=== PATIENT | female | born 2000 | race Hispanic/Latino ===

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

== ENCOUNTER 2022-04-22 09:36 | Emergency (ER) | payer OTHER ==
[2022-04-22 10:55] LABS: #Lymphocytes 0.8 thou/uL (1.20-3.40); #Monocytes 0.8 thou/uL (0.11-0.59); #Neutrophils 4.9 thou/uL (1.40-6.50); %Basophils 0.3 % (0.0-1.0); %Eosinophils 0.2 % (0.0-10.0); %Lymphocytes 12.7 % (28.0-48.0); %Monocytes 12.5 % (0.0-4.0); %Neutrophils 74.2 % (31.0-61.0); Hemoglobin 12.7 g/dL (12.0-16.0); Mean Corpuscular HGB CONC 31.1 g/dL (32.0-36.0); Mean Corpuscular Hemoglobin 27.2 pg (25.0-35.0); Mean Corpuscular Volume 87.6 fl (78.0-98.0); Mean Platelet Volume 8.8 fL (7.4-10.4); Platelet Count 248 10x3/uL (130-400); Red Blood Cell (RBC) Count 4.65 mill/uL (4.00-5.20); White Blood Cell (WBC) Count 6.6 10x3/uL (4.8-10.8)
[2022-04-22 11:07] LABS: BHCG - Serum Negative (NEGATIVE); Pregs Control Background? CLEAR/WHITE (CLR/WHITE); Pregs Control Bar Appear? YES (CONTROL BAR)
[2022-04-22 11:19] LABS: ALT (SGPT) 14 U/L (8-55); AST (SGOT) 19 U/L (5-30); Albumin 4.3 g/dL (3.5-5.0); Alkaline Phosphatase 91 U/L (40-100); Anion Gap 15 mmol/L (10-20); BUN (Urea Nitrogen) 10 mg/dL (8.4-21.0); Bilirubin, Total 0.3 mg/dL (0.2-1.2); Calc. Creatinine Clearance 0 mL/min (70-130); Calcium 8.9 mg/dL (7.8-10.44); Carbon Dioxide 20 mmol/L (22-29); Chloride 104 mmol/L (98-107); Estimated GFR 123; Glucose 87 mg/dL (70-105); Potassium 3.7 mmol/L (3.5-5.1); Protein, Total 7.3 g/dL (6.0-8.3); Sodium 135 mmol/L (136-145)
== END 2022-04-22 12:12 | disposition home or self-care (01) ==
LOC: ERS 09:36
DX: J10.83 Influenza due to other identified influenza virus with otitis media (principal); R55 Syncope and collapse
CPT/HCPCS: 36415; 80053; 83605; 84703; 85025; 87804; 93005

== ENCOUNTER 2024-06-03 14:16 | Emergency (ER) | payer SELFPAY ==
[2024-06-03] MEDS ORDERED: Ondansetron ODT 4 MG TAB ONE (14:19)
[2024-06-03] MEDS ORDERED: Ondansetron PF 4 MG/2 ML Vial ONE (14:44)
[2024-06-03 15:11] LABS: Bilirubin Negative (Negative); Blood, Urine Negative (Negative); Glucose, Urine (Dipstick) Negative (Negative); Ketone, Urine Negative (Negative); Leukocyte Negative (Negative); Nitrite Negative (Negative); Protein, Urine (Dipstick) 30 mg/dL (Neg-Trace); Urobilinogen 0.2 mg/dL (Less than 2)
[2024-06-03] MEDS ORDERED: diphenhydrAMINE 50 MG/ML VIAL ONE (15:12)
[2024-06-03] MEDS ORDERED: Haloperidol Lactate 5 MG/ML VIAL ONE (15:12)
[2024-06-03] MEDS ORDERED: Metoclopramide HCl 10 MG (2 mL) VIAL ONE (15:12)
[2024-06-03 15:14] LABS: #Basophils 0.04 10x3/uL (0.0-0.2); #Eosinophils Less than 0.03 10x3/uL (0.0-0.7); %Basophils 0.3 % (0.0-1.0); %Lymphocytes 10.3 % (21.0-51.0); %Monocytes 2.2 % (0.0-10.0); %Neutrophils 86.6 % (42.0-75.0); Hematocrit 40.5 % (36.0-47.0); Hemoglobin 13.8 g/dL (12.0-16.0); Mean Corpuscular HGB CONC 34.1 g/dL (32.0-36.0); Mean Corpuscular Hemoglobin 31.1 pg (27.0-31.0); Mean Corpuscular Volume 91.2 fL (78.0-98.0); Platelet Count 326 10x3/uL (130-400); RBC Distribution Width 13.8 % (11.5-14.5); Red Blood Cell (RBC) Count 4.44 mill/uL (4.20-5.40)
[2024-06-03 15:14] LABS: Clarity Hazy (Clear)
[2024-06-03 15:15] LABS: Specific Gravity, Urine 1.029 (1.002-1.036)
[2024-06-03 15:16] LABS: Bacteria/HPF None Seen HPF (None Seen); CAUTI Indications for Culture Dysuria,urgency,freq; RBC/HPF None Seen HPF (0-3); Squamous Epithelial 0-3 HPF (0-3); WBC/HPF None Seen HPF (0-3)
[2024-06-03 15:17] LABS: Urine Culture Reflex No No
[2024-06-03 15:26] LABS: BHCG - Serum Negative (NEGATIVE); Pregs Control Background? CLEAR/WHITE (CLR/WHITE); Pregs Control Bar Appear? YES (CONTROL BAR)
[2024-06-03 15:29] LABS: Lipase 11 U/L (8-78)
[2024-06-03 15:29] LABS: Amphetamine Not Detected (NotDetected); Barbiturates Screen Not Detected (NotDetected); Benzodiazepine Screen Not Detected (NotDetected); Cocaine Metabolite Screen Not Detected (NotDetected); Methadone Not Detected (NotDetected); Methamphetamine Not Detected (NotDetected); Opiate Screen Not Detected (NotDetected); Oxycodone Screen Not Detected (NotDetected); Phencyclidine (PCP) Not Detected (NotDetected); THC/Cannabinoid Screen Detected (NotDetected); Tricyclic Screen Not Detected (NotDetected)
[2024-06-03 15:31] LABS: ALT (SGPT) 29 U/L (8-55); AST (SGOT) 25 U/L (5-34); Acetaminophen Less than 10 mcg/mL (Less than 10); Albumin 4.5 g/dL (3.5-5.0); Alcohol Less than 10.0 mg/dL (Less than 10); Alkaline Phosphatase 82 U/L (40-110); Anion Gap 16 mmol/L (10-20); BUN (Urea Nitrogen) 13 mg/dL (7.0-18.7); Bilirubin, Total 0.3 mg/dL (0.2-1.2); Calc. Creatinine Clearance 0 mL/min (70-130); Calcium 9.5 mg/dL (7.8-10.44); Carbon Dioxide 22 mmol/L (22-29); Chloride 107 mmol/L (98-107); Estimated GFR 128; Globulin 3.9 g/dL (2.4-3.5); Glucose 150 mg/dL (70-105); Potassium 3.6 mmol/L (3.5-5.1); Protein, Total 8.4 g/dL (6.0-8.3); Salicylate Less than 8.0 mg/dL (Less than 8.0); Sodium 141 mmol/L (136-145)
== END 2024-06-03 16:25 | disposition home or self-care (01) ==
LOC: ERS 14:16
DX: F12.188 Cannabis abuse with other cannabis-induced disorder (principal); F17.210 Nicotine dependence, cigarettes, uncomplicated
CPT/HCPCS: 36415; 80053; 80306; 80307; 81001; 83690; 84703; 85025; J1200; J1630; J2405; J2765; Q0162